=== PATIENT | male | born 1975 | race Caucasian/White ===

== ENCOUNTER 2018-04-17 10:48 | Emergency (ER) | payer SELFPAY ==
[~2018-04-17] VITALS: Ht 190.5 cm; Wt 90.0 kg
[2018-04-17 10:56] VITALS: BP 166/77; PULSE 115; RESP 16; TEMP 99.4; O2SAT 99
--- NOTE | 2018-04-17 11:10 | PD ---
HPI Chief Complaint: Pain: Acute or Chronic Time Seen by Provider: 10:58 Travel History International Travel<30 days: No Contact w/Intl Traveler<30days: No Traveled to known affect area: No History of Present Illness HPI patient is a 42 year old male presents to the ER for evaluation of right flank pain. patient states that he has a history of kidney stones but does not currently have a urologist since [facility]. States the pain just started this morning about 0800. Accompanied with dysuria. No N/V/D/C. PFSH Past Medical History Narrative Medical Kidney stones. Past Surgical History Narrative Surgical Back surgery Social History Tobacco Use: No Allergies-Medications (Allergen,Severity, Reaction): Coded Allergies: ketorolac (Verified Allergy, Unknown, Hives, 04/17/18) tramadol (Verified Allergy, Unknown, 04/17/18) Reported Meds & Prescriptions Reported Meds & Active Scripts Active No Active Prescriptions or Reported Medications Review of Systems Except as stated in HPI: all other systems reviewed are Neg Physical Exam Narrative GENERAL: WD/WN in nad. Pacing in the room. SKIN: Warm and dry. HEAD: Atraumatic. Normocephalic. EYES: Pupils equal and round. No scleral icterus. No injection or drainage. ENT: No nasal bleeding or discharge. Mucous membranes pink and moist. NECK: Trachea midline. No JVD. CARDIOVASCULAR: Regular rate and rhythm. RESPIRATORY: No accessory muscle use. Clear to auscultation. Breath sounds equal bilaterally. GASTROINTESTINAL: Abdomen soft, non-tender, nondistended. Hepatic and splenic margins not palpable. No CVA tenderness. MUSCULOSKELETAL: Extremities without clubbing, cyanosis, or edema. No obvious deformities. NEUROLOGICAL: Awake and alert. No obvious cranial nerve deficits. Motor grossly within normal limits. Five out of 5 muscle strength in the arms and legs. Normal speech. PSYCHIATRIC: Appropriate mood and affect; insight and judgment normal. Data Data Last Documented VS Vital Signs Date Time Temp Pulse Resp B/P (MAP) Pulse Ox O2 Delivery O2 Flow Rate FiO2 04/17/18 10:56 99.4 115 16 166/77 (106) 99 Orders Orders Urinalysis - C+S If Indicated (04/17/18 11:01) Ketorolac Inj (Toradol Inj) (04/17/18 11:15) Ed Poc Ultrasound (04/17/18 ) Complete Blood Count With Diff (04/17/18 11:37) Comprehensive Metabolic Panel (04/17/18 11:37) Ct Abd/Pel W/O Iv Contrast (04/17/18 11:37) Iv Access Insert/Monitor (04/17/18 11:37) Ecg Monitoring (04/17/18 11:37) Oximetry (04/17/18 11:37) Sodium Chloride 0.9% Flush (Ns Flush) (04/17/18 11:45) Acetaminophen (Tylenol) (04/17/18 11:45) Labs Laboratory Tests Test 04/17/18 11:17 [facility] Medical Decision Making Medical Screen Exam Complete: Yes Emergency Medical Condition: Yes Differential Diagnosis Kidney stone, abdominal pain, musculoskeletal pain. Narrative Course Patient roomed in the ER. Appears fairly comfortable but is pacing the room. Patient ordered a dose of toradol stating initially he is allergic to tramadol. Nursing then informed me that he is allergic to toradol as well, stating it causes rash, and vomiting. Patient BS US performed which is reassuring (see below). Advised tylenol, labs and CT scan. Gillian ordered. Patient then declined these orders and expressed wishes to sign out ama. He signed formal ama papers and ambulated from the ED in [facility]. Diagnosis Primary Impression: Flank pain Scripts No Active Prescriptions or Reported Meds Disposition: 07 AGAINST MEDICAL ADVICE Jose Montalvo MD Apr 17, 2018 11:10
[2018-04-17] MEDS ORDERED: KETOROLAC TROMETHAMINE 60 MG/2 ML (IM) VIAL IM ONE (11:15)
[2018-04-17 11:44] LABS: BACTERIA, URINE RARE /hpf; BILIRUBIN, URINE NEG (NEG); BLOOD, URINE LARGE (NEG); GLUCOSE,URINE NEG (NEG); KETONE, URINE NEG (NEG); NITRITE,URINE NEG (NEG); URINE COLOR Straw (YELLW/STRAW); URINE LEUKOCYTE ESTERASE NEG (NEG)
[2018-04-17] MEDS ORDERED: SODIUM CHLORIDE 0.9% FLUSH 10 ML FLUSH IV FLUSH PRN (11:45)
[2018-04-17] MEDS ORDERED: ACETAMINOPHEN 325 MG TAB PO ONE (11:45)
== END 2018-04-17 11:59 | disposition left against medical advice (07) ==
LOC: NEPD 10:48
DX: R10.9 Unspecified abdominal pain (principal); Z88.8 Allergy status to other drugs, medicaments and biological substances; Z87.442 Personal history of urinary calculi
CPT/HCPCS: 81001; 96372